=== PATIENT | male | born 1955 | race Caucasian/White ===

== ENCOUNTER → 2025-08-09 09:32 | Outpatient (REF) | payer MEDICARE, BC, SELFPAY | LOC: HWRAD 09:32 | PROVIDERS: ATTENDING PHYSICIAN Internal Medicine | DX: M25.551 Pain in right hip (principal); M25.561 Pain in right knee | CPT/HCPCS: 73502; 73564 ==

== ENCOUNTER 2025-10-26 21:00 | Emergency (ER) | payer MEDICARE, BC, SELFPAY ==
[2025-10-26 21:08] VITALS: BP 177/100
[2025-10-26] MEDS: TYLENOL 1000 MG PO (21:26)
[2025-10-26] MEDS: MIRALAX 17 GRAMS PO (21:29)
[2025-10-26] MEDS: DULCOLAX 10 MG RECTAL (22:35)
[2025-10-26 22:40] VITALS: BMI 35.9
--- NOTE | 2025-10-26 22:58 | ED.GENMED ---
History of Present Illness
General
Chief Complaint: Anal/Rectal Problem
Source: patient
Exam Limitations: none
Time Seen by Provider: 10/26/25 22:45
History of Present Illness
History of Present Illness:
70yoM with a history of coronary artery disease s/p CABG, hypertension, hyperlipidemia, type 2 diabetes presenting for evaluation of constipation. Last bowel movement was 4 days ago. He is presenting with severe pain in his rectum and states he
feels like he is unable to evacuate his stool. He took a laxative [id number] without any relief. He denies any abdominal pain, vomiting, or difficulty urinating. No previous abdominal surgeries.
Past History
Past History
ED Past Medical History: Arrthythmia, CAD, HTN, Hypercholesterolemia and NIDDM
ED Past Surgical History: Cardiac and Orthopedic
Social History
Tobacco: Non-smoker
Alcohol: Occasional
Drug: None
Personal:
Living: with family
Employment: Employed (Maintenance at [employer])
Family History
Family History: CAD and Other
Phy Exam
Physical Exam
Physical Exam:
Appears uncomfortable, pacing around exam room
General Physical Exam
General Presentation: well appearing
General Skin: warm and dry
General Habitus: normal, elderly and obese
General Mental: alert
ENT Exam
ENT Exam: normocephalic
Pulmonary Exam
Pulmonary Exam: no respiratory distress
Gastrointestinal Exam
Gastrointestinal Exam: non tender, soft and non distended
Rectal Exam: other (Hard brown stool noted on rectal exam consistent with a fecal impaction)
Neurological Exam
Neurological Exam: alert
[place] Coma Scale
Eye Opening: Spontaneous
Verbal Response: Oriented
Motor Response: Obeys Commands
GCS Total Score: 15
Skin Exam
Skin Exam: normal color and warm/dry
Psychiatric Exam
Psychiatric Exam: anxious
Course
Orders/Labs/Results
Orders:
Orders
10/26/25 21:18
Acetaminophen [Tylenol] 1,000 mg .ROUTE .STK-MED ONE
Bisacodyl [Dulcolax] 10 mg .ROUTE .STK-MED ONE
10/26/25 21:23
Polyethylene Glycol Powder [Miralax] 17 grams .ROUTE .STK-MED ONE
10/26/25 21:25
Acetaminophen [Tylenol] 1,000 mg PO NOW STA
10/26/25 22:35
Bisacodyl [Dulcolax] 10 mg RECTAL NOW STA
10/26/25 23:06
Ibuprofen [Motrin] 600 mg PO NOW STA
10/27/25 08:00
Polyethylene Glycol Powder [Miralax] 17 grams PO DAILY
Vital Signs
Initial and Last Documented VS:
Initial Vital Signs
Pulse Resp BP Pulse Ox
108 20 177/100 98
10/26/25 21:08 10/26/25 21:08 10/26/25 21:08 10/26/25 21:08
Last Documented Vital Signs
Temp Pulse Resp BP Pulse Ox
97.7 F 108 20 177/100 98
10/26/25 23:02 10/26/25 21:08 10/26/25 21:08 10/26/25 21:08 10/26/25 22:59
MDM/Problems Addressed
Differential Diagnosis Includes:
70yoM here with constipation x 4 days with severe rectal pain that began this evening. Feels like stool is stuck. Denies abd pain, vomiting, difficulty urinating. He is hypertensive on arrival, likely 2/2 pain. Abdominal exam is benign. Hard brown
stool noted on rectal exam consistent with a fecal impaction.
Patient was given Miralax and Dulcolax suppository by nursing staff prior to initial exam. Manual disimpaction performed with removal of a large amount of hard stool. Patient able to pass a large BM after disimpaction and he is feeling much better
on reassessment. He states he 'feels like a new man' and rectal pain has resolved. Patient stable for discharge. Supportive care discussed including Miralax. Advised f/u with PCP and ED return precautions reviewed. He was discharged in stable
condition.
*Pulse Oximetry
SaO2: 98
Oxygen Mode of Delivery: Room air
Patient hypoxic: no
*Critical Care Note
Total Time (30-74mins, 75-104mins- exclusive of procedures): Not Applicable
ED Attending Note
-
Portions of this chart may have been created with voice recognition software.� Occasional wrong word or��sound alike� substitutions may have occurred due to the inherent limitations of voice recognition software.
Discharge Plan
Departure
Patient Disposition: Home (Routine Discharge)
Date of Disposition: 10/26/25
Time of Disposition: 23:07
Patient with high blood pressure during this ER visit?: Yes
Discharge Problem:
Fecal impaction
Instructions: Fecal Impaction (DC)
Prescriptions:
No Action
hydrocodone-acetaminophen 1 TABLET tablet
1 tab PO DAILYPRN PRN (Reason: moderate pain)
fish oil-dha-epa 1 EACH capsule
1 cap PO DAILY
diclofenac sodium [Diclo Gel] 1 EACH kit
1 applic topical BIDPRN PRN (Reason: shoulder pain)
Patient Comments:
to left shoulder
furosemide 40 MG tablet
40 mg PO DAILY Qty: 7 0RF
Rx Instructions:
take one tablet once daily x 7 days then stop
amiodarone [Pacerone] 200 MG tablet
200 mg PO BID Qty: 60 1RF
Rx Instructions:
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
diltiazem HCl 120 MG capsule,extended release 24hr
120 mg PO DAILY Qty: 30 3RF
metformin 500 MG tablet
500 mg PO DAILY
atorvastatin 80 MG tablet
80 mg PO QPM
carvedilol 6.25 MG tablet
6.25 mg PO BID
aspirin 81 MG tablet,delayed release (DR/EC)
81 mg PO DAILY
acetaminophen [Tylenol Extra Strength] 500 MG tablet
500 mg PO Q4HPRN PRN (Reason: mild pain)
lidocaine 1 PATCH adhesive patch,medicated
1 patch topical DAILYPRN PRN (Reason: left shoulder pain)
oxycodone-acetaminophen 5 MG/325 MG tablet
1 tab PO Q4HPRN PRN (Reason: pain) Qty: 17 0RF
tamsulosin 0.4 MG capsule
0.4 mg PO DAILY Qty: 7 0RF
ondansetron 4 MG tablet,disintegrating
4 mg PO TIDPRN PRN (Reason: nausea/vomiting) Qty: 11 0RF
Referrals:
UNKNOWN - PT DOES,NOT KNOW [Family Provider]
Activity Restrictions/Additional Instructions:
Increase your fluid and fiber intake. Take MiraLAX 1-2 times daily as needed for constipation.
Please follow-up with your family doctor. Return to the ER with any new or worsening symptoms.
Interventions
Interventions:
*General Assessment Last Done: 10/26/25 21:08
*Neglect/Abuse Screening Last Done: 10/26/25 21:08
*ED COVID-19 Vaccine History Last Done: 10/26/25 21:08
*ED Influenza Vaccine History Last Done: 10/26/25 21:08
[facility] Fall Risk Assessment Tool Last Done: 10/26/25 22:41
*Risk Screen - Suicide (C-SSRS) Last Done: 10/26/25 21:08
*Nursing Disposition Last Done: 10/26/25 23:19
GR-Bvqvus-Zjpqzqhggm Assessment Last Done: 10/26/25 22:42
ED-Skin Assessment Last Done: 10/26/25 22:41
Discharge Date and Time
Discharge Date/Time: 10/26/25 23:20
Print Language: TRISTANIAN
[2025-10-26] MEDS: MOTRIN 600 MG PO (23:09)
== END 2025-10-26 23:20 | disposition home or self-care (01) ==
LOC: EMR 21:00
PROVIDERS: EMERGENCY PHYSICIAN Student in an Organized Health Care Education/Training Program
DX: K56.41 Fecal impaction (principal); E11.9 Type 2 diabetes mellitus without complications; E78.00 Pure hypercholesterolemia, unspecified; I10 Essential (primary) hypertension; I25.10 Atherosclerotic heart disease of native coronary artery without angina pectoris; Z95.1 Presence of aortocoronary bypass graft
CPT/HCPCS: 99283